=== PATIENT | female | born 1995 | race Two or more races ===

== ENCOUNTER 2020-01-18 11:28 | Emergency (ER) | payer MEDICAID ==
[~2020-01-18] VITALS: Ht 154.9 cm; Wt 52.2 kg
[2020-01-18 11:52] LABS: Urine WBC None Seen /hpf (0 - 5)
[2020-01-18 12:11] LABS: Urine Bacteria NONE SEEN /hpf (None Seen); Urine Blood 3+ /uL (Negative); Urine Specific Gravity 1.025 (1.001-1.035)
[2020-01-18 14:14] VITALS: BP 87/51
== END 2020-01-18 14:14 | disposition home or self-care (01) ==
LOC: ER 11:28
DX: N83.201 Unspecified ovarian cyst, right side (principal)
CPT/HCPCS: 36415; 76856; 81001; 84702